=== PATIENT | male | born 1950 | race Caucasian/White ===

== ENCOUNTER 2017-07-15 16:32 | Inpatient (IN) | payer MEDICARE ==
[~2017-07-15] VITALS: Ht 172.7 cm; Wt 69.6 kg
[2017-07-20] VITALS (10 sets, daily range): BP systolic 119–138; BP diastolic 59–80; PULSE 61–90; TEMP 97.9–98.1
[2017-07-20] MEDS ORDERED: AMITRIPTYLINE H25 M1 PO (11:59)
[2017-07-20] MEDS ORDERED: ZANTAC 150MG T150 MG PO (11:59)
[2017-07-20] MEDS ORDERED: TIROSINT88 MC1 PO (12:00)
[2017-07-20] MEDS ORDERED: LEXAPRO 10MG10 MG PO (12:00)
[2017-07-20] MEDS ORDERED: NORVASC 5MG5 MG/TAB PO (12:00)
[2017-07-20] MEDS ORDERED: PERCOCET 325 MG1 TA2 PO (12:00)
[2017-07-21 01:51] VITALS: BP 115/65; PULSE 86; TEMP 98.3
[2017-07-21 05:15] VITALS: BP 131/76; PULSE 84; TEMP 98.4
[2017-07-21 07:51] LABS: HEMATOCRIT 29.4 % (42.0-52.0); HEMOGLOBIN 9.7 g/dl (13.5-18.0)
[2017-07-21 07:58] LABS: CALCIUM 8.6 mg/dL (8.4-10.2); CREATININE, serum 1.22 mg/dL (0.66-1.25); MAGNESIUM 1.9 mg/dL (1.6-2.3); PHOSPHOROUS 4.3 mg/dL (2.5-4.5)
[2017-07-21 10:05] VITALS: BP 120/67; PULSE 81; TEMP 98.7
[2017-07-21 13:47] VITALS: BP 121/64; PULSE 71; TEMP 98.3
[2017-07-21 18:13] VITALS: BP 132/72; PULSE 79; TEMP 97.8
[2017-07-21 23:14] VITALS: BP 110/63; PULSE 94; TEMP 98
[2017-07-22 05:56] VITALS: BP 112/62; PULSE 72; TEMP 98.3
[2017-07-22 10:16] VITALS: BP 109/70; PULSE 69; TEMP 98.3
== END 2017-07-22 11:05 | disposition home or self-care (01) | DRG 330 ==
LOC: INPTSU 07-20 11:34 → SURG 07-20 11:34
PROVIDERS: Family Medicine; Surgery
PROC: 8E0W4CZ Robotic Assisted Procedure of Trunk Region, Percutaneous Endoscopic Approach (ICD-10-PCS; 2017-07-20)
PROC: 0DTF4ZZ Resection of Right Large Intestine, Percutaneous Endoscopic Approach (ICD-10-PCS; principal; 2017-07-20 16:15)
DX: C78.5 Secondary malignant neoplasm of large intestine and rectum (principal); C78.4 Secondary malignant neoplasm of small intestine; C78.7 Secondary malignant neoplasm of liver and intrahepatic bile duct; C79.31 Secondary malignant neoplasm of brain; Z85.820 Personal history of malignant melanoma of skin
CPT/HCPCS: A4314; A9284; J0690; J1100; J1650; J1885; J2405; J2704; J2710; J7120